=== PATIENT | female | born 1990 | race Caucasian/White ===

== ENCOUNTER 2016-03-09 20:11 | Emergency (ER) | payer OTHER ==
--- NOTE | 2016-03-09 21:13 | ED ANIMAL BITE/WOUND CHECK ---
History of Present Illness General Chief Complaint: Animal/Insect Bite Stated Complaint: CAT BITE TO RIGHT FOREARM AROUND 6:30 PM Source: patient Exam Limitations: no limitations Vital Signs & Intake/Output Vital Signs & Intake/Output Vital Signs Date Time Temp Pulse Resp B/P Pulse O2 O2 Flow FiO2 Ox Delivery Rate 03/09 2219 70 120/80 03/09 2030 98.1 69 20 119/80 Allergies Coded Allergies: No Known Allergies (03/09/16) Reconcile Medications Augmentin (Augmentin 500-125 Tablet) 500 MG-125 MG TABLET 1 TAB PO BID CAT BITE L-Norgest/E.estradion-E.estrad (Levono-E Estrad 0.10-0.02-0.01) 0.10 MG-20 MCG ( 84)/10 MCG (7) [id number] 1 TAB PO DAILY CONTROL (Reported) Triage Note: PER PT WORK AT VET SCRATCHED TO RT FORE ARM BY CAT CAT IS VACCINATED,UTD. PT IS UTD WITH TETANUS Triage Nurses Notes Reviewed? yes Injury Environment: work Is Injury an Animal Bite? 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 Patient currently complains of 2/10 localized forearm pain. Patient's tetanus is up-to-date Patient has never received rabies vaccine or shots. (ANGEL YUSUF) Past History Travel History Traveled to [place] past 21 day No Medical History Any Pertinent Medical History? none Neurological: NONE EENT: NONE Cardiovascular: NONE Respiratory: NONE Gastrointestinal: NONE Hepatic: NONE Renal: NONE Musculoskeletal: NONE Psychiatric: NONE Endocrine: NONE Surgical History Surgical History: non-contributory Psychosocial History What is your primary language [place] Tobacco Use: Never used Family History Hx Contributory? No (ANGEL YUSUF) Review of Systems Review of Systems Constitutional: Reports: no symptoms. EENTM: Reports: no symptoms. Respiratory: Reports: no symptoms. Cardiovascular: Reports: no symptoms. GI: Reports: no symptoms. Genitourinary: Reports: no symptoms. Musculoskeletal: Reports: see HPI. Skin: Reports: see HPI. Neurological/Psychological: Reports: no symptoms. Hematologic/Endocrine: Reports: no symptoms. Immunologic/Allergic: Reports: no symptoms. All Other Systems: Reviewed and Negative (ANGEL YUSUF) Physical Exam Physical Exam General Appearance: no apparent distress Skin: normal color, warm/dry Comments: Well-developed well-nourished no apparent distress. HEENT: Atraumatic, extraocular motion intact Neck: Supple, no lymphadenopathy Back: Nontender Respiratory: No respiratory distress Extremities: No edema, full range of motion Neuro: Alert and oriented x3 Psych: Mood affect normal, normal memory normal judgment. Diagram Body: 1) Minimal superficial 2 mm puncture wound noted with no active bleeding skin is intact surrounding 1 cm ecchymosis and erythema noted no active discharge mild point tenderness noted dermatomes intact (ANGEL YUSUF) Progress Differential Diagnosis: abscess, cellulitis, joint infection, tenosysnovitis Plan of Care: The puncture wound site was cleaned with chlorhexidine and sterile water bacitracin and bandage was applied. The offending Bite immunizations were up-to -date patient's tetanus was up-to-date. Patient will prophylactically be treated with Augmentin (ANGEL YUSUF) Departure Departure Disposition: HOME OR SELF CARE Condition: Stable Clinical Impression Primary Impression: Cat bite of right forearm Referrals: PATIENT HAS NO PRIMARY CARE DR (PCP/Family) Additional Instructions: As discussed begin the prescription of Augmentin as directed for the full course. This prescription is waiting at [facility] pharmacy ON [address] Begin [id number] ibuprofen if needed for pain and inflammation. If you note signs of infection redness, pain, swelling, discharge return to emergency room immediately. You have been given a primary care doctor's appointment in the emergency room, please go to this appointment or call the [facility] practice AND REFER to the brochure from the emergency room to make an appointment to establish a doctor. Apply bacitracin to the area once a day for the following 4 days. Keep area dry and clean as she can. Departure Forms: Customer Survey Employee Industrial Accident General Discharge Information Prescriptions: Current Visit Scripts Augmentin (Augmentin 500-125 Tablet) 1 TAB PO BID #20 TAB (ANGEL YUSUF) PA/VIAL GAUGER Co-Sign Statement Statement: ED Attending supervision documentation- [] I saw and evaluated the patient. I have also reviewed all the pertinent lab results and diagnostic results. I agree with the findings and the plan of care as documented in the PA's/VIAL GAUGER's documentation. [X] I have reviewed the ED Record and agree with the PA's/VIAL GAUGER's documentation. [] Additions or exceptions (if any) to the PAs/VIAL GAUGER's note and plan are summarized below: [] (SHERIF WANG,TINO Wang)
[2016-03-09] MEDS ORDERED: [UNRECOGNIZED DRUG - OTHER] PO (21:16)
[2016-03-09] MEDS ORDERED: AUGMENTIN 500-1 EACH PO (22:08)
[2016-03-09 22:20] VITALS: BP 120/80
== END 2016-03-09 22:21 ==
LOC: EDBD 20:11 → ERH 20:11
DX: S51.851A Open bite of right forearm, initial encounter (principal); W55.01XA Bitten by cat, initial encounter